=== PATIENT | female | born 1980 | race Caucasian/White ===

== ENCOUNTER 2022-09-18 16:33 | Emergency (ER) | payer BC, SELFPAY ==
[2022-09-18 16:44] VITALS: BP 137/81; PULSE 93; RESP 16; TEMP 36.9; O2SAT 100
--- NOTE | 2022-09-18 17:00 | ED.SKABFB ---
HPI - Skin/Abscess/Foreign Bdy General Chief complaint: Skin/Abscess/Foreign Body Stated complaint: Skin Sore Time Seen by Provider: 09/18/22 16:53 Source: patient and RN notes reviewed Mode of arrival: ambulatory Limitations: no limitations History of Present Illness HPI narrative: Patient presents today complaining of a 2 week history of a cyst to her left groin area. She rates the pain 3/10 at rest, which increases to 8/10 with movement. Reports history of cysts/abscesses in the past with history of excision. She has not tried any [id number] treatment prior to arrival. Denies history of MRSA Related Data Allergies Allergy/AdvReac Type Severity Reaction Status Date / Time No Known Allergies Allergy Verified 09/18/22 17:08 Review of Systems Review of Systems: CONSTITUTIONAL: Denies body aches, fever, chills, or sweats. EYES: Denies visual changes, redness, or discharge. ENT: Denies rhinorrhea, congestion, sore throat, or otalgia. CARDIOVASCULAR: Denies chest pain, palpitations, or edema. RESPIRATORY: Denies cough or dyspnea. GASTROINTESTINAL: Denies abdominal pain, nausea, vomiting, or diarrhea. GENITOURINARY: Denies dysuria or hematuria. SKIN: Denies rash, itching, or wounds.+ abscess to left groin MUSCULOSKELETAL: Denies back pain, joint pain, or myalgia. NEUROLOGIC: Denies headache, numbness, tingling, or weakness. PSYCH: Denies depression or anxiety. PMFSH Comments At time of signature, I have reviewed and agree with nursing past medical, surgical, social and family history unless otherwise noted. Please see nursing chart for further information. There is no relevant family history pertinent to the presenting complaint Exam Narrative: GENERAL: Well-appearing, well-nourished, and in no acute distress. HEAD: Normocephalic, atraumatic. EYES: EOMI. No redness or drainage. Conjunctivae normal. ENT: Mucous membranes pink and moist. NECK: Normal AROM. CHEST: No respiratory distress. EXTREMITIES: Normal range of motion. No edema. SKIN: Warm, dry, no rash. Capillary refill normal. Normal skin turgor. 1 x 1.5 cm area of fluctuance to the left groin fold. Tender to palpation. NEURO: No focal deficits. Alert and oriented x3. Gait steady. PSYCH: Normal affect. No signs of depression or anxiety. Course Course Level of Care: Express Care Visit Vital Signs Vital signs: Vital Signs Temperature 98.5 F 09/18/22 16:44 Pulse Rate 93 09/18/22 16:44 Respiratory Rate 16 09/18/22 16:44 Blood Pressure 137/81 09/18/22 16:44 Pulse Oximetry 100 09/18/22 16:44 Oxygen Delivery Room Air 09/18/22 16:44 Temperature 98.5 F 09/18/22 16:44 Pulse Rate 93 09/18/22 16:44 Respiratory Rate 16 09/18/22 16:44 Blood Pressure 137/81 09/18/22 16:44 Pulse Oximetry 100 09/18/22 16:44 Oxygen Delivery Room Air 09/18/22 16:44 Reviewed. Pt has been instructed to follow up with her PCP regarding her elevated blood pressure today. Procedures Abscess I/D Left groin: Date of Incision: 09/18/22 Time of Incision: 17:04 Side (if applicable): right Local Anesthetic: lidocaine 1% Amount of anesthesia used (mL): 2 Technique: incised with #11 blade Amount of fluid expressed (mL): 1 Irrigation: No Packing used?: none I&D Results: Pus and Blood Abcess I&D Additional Comments: Dressed with Band-Aid MDM - Skin/Abscess/Foreign Bdy MDM Narrative Medical decision making narrative: I&D complete. Will treat with Bactrim. Anticipatory guidance given. Differential Diagnosis Differential diagnosis: Likely abscess of skin or subcutaneous tissue and cellulitis Critical Care Time Critical Care Time Critical Care Time: No Discharge Plan Discharge Clinical Impression: Abscess of groin, left Patient Disposition: Home, Self-Care Condition: Stable Instructions: Antibiotic Form, Abscess (ED), Abscess Incision and Drainage (
== END 2022-09-18 17:20 | disposition home or self-care (01) ==
PROVIDERS: Emergency Provider Nurse Practitioner
DX: L02.214 Cutaneous abscess of groin (principal)
CPT/HCPCS: 10060; 99213; G0463